=== PATIENT | male | born 1980 | race African-American/Black ===

== ENCOUNTER 2023-04-24 11:42 | Emergency (ER) | payer SELFPAY ==
[~2023-04-24] VITALS: Ht 180.3 cm; Wt 90.0 kg
[2023-04-24 11:46] VITALS: BP 147/97; PULSE 120; RESP 20; TEMP 98.7; O2SAT 100
[2023-04-24] MEDS ORDERED: LEVETIRACETAM 500MG TABLET PO ONE (13:30)
[2023-04-24] MEDS ORDERED: KEPP500 PO (14:55)
[2023-04-24] MEDS ORDERED: KEPP500 MT (14:55)
== END 2023-04-24 15:18 | disposition home or self-care (01) ==
LOC: ER 11:50
DX: R56.9 Unspecified convulsions (principal)
CPT/HCPCS: 99283